=== PATIENT | male | born 1945 | race Caucasian/White ===

== ENCOUNTER 2018-08-19 15:33 | Inpatient (IN) | payer MEDICARE, MEDICAID ==
[~2018-08-19] VITALS: Ht 170.2 cm; Wt 55.8 kg
--- NOTE | 2018-08-19 15:35 | NUR ---
Dr. Kevin at bedside to examine patient.
--- NOTE | 2018-08-19 16:27 | NUR ---
call for report as informed rn. Tompkins on lunch break. to call back in 30 min.
[2018-08-19 16:40] LABS: BASOPHILS # (AUTO) 0.1 K/uL (0.0-8.0); BASOPHILS % (AUTO) 1.1 % (0.0-2.0); EOSINOPHILS # (AUTO) 0.2 K/uL (0.0-0.7); EOSINOPHILS % (AUTO) 2.7 % (0.0-7.0); HEMATOCRIT 42.1 % (36.7-47.1); LYMPHOCYTES # (AUTO) 1.4 K/uL (20.0-40.0); LYMPHOCYTES % (AUTO) 20.5 % (20.5-51.5); MEAN CORPUSCULAR HEMOGLOBIN 30.2 uug (23.8-33.4); MEAN CORPUSCULAR HGB CONC 33 g/dL (32.5-36.3); MEAN CORPUSCULAR VOLUME 90.6 fL (73.0-96.2); MONOCYTES # (AUTO) 0.5 K/uL (2.0-10.0); MONOCYTES % (AUTO) 8.1 % (0.0-11.0); NEUTROPHILS # (AUTO) 4.5 K/uL (1.8-8.9); NEUTROPHILS % (AUTO) 67.6 % (38.5-71.5); PLATELET COUNT (AUTO) 215 K/uL (152-348); RED BLOOD CELL COUNT(AUTO) 4.64 MIL/uL (4.06-5.63); WHITE BLOOD COUNT (AUTO) 6.6 K/uL (3.6-10.2)
[2018-08-19 16:43] LABS: CARBON DIOXIDE 30 mmol/L (21-32); CHLORIDE 110 mmol/L (98-107); CREATININE 1.2 mg/dL (0.6-1.3); GLUCOSE 91 mg/dL (74-106); POTASSIUM 4.3 mmol/L (3.5-5.1); UREA NITROGEN, BLOOD 29 mg/dL (7-18)
[2018-08-19 16:48] LABS: ETHANOL < 3 MG/DL (0-0)
[2018-08-19 16:55] LABS: ALANINE AMINOTRANSFERASE 41 U/L (16-63); ALKALINE PHOSPHATASE 85 U/L (50-136); ASPARTATE AMINOTRANSFERASE 16 U/L (15-37); BILIRUBIN,DIRECT 0.1 mg/dL (0.0-0.2); BILIRUBIN,TOTAL 0.4 mg/dL (0.2-1.0); TOTAL PROTEIN, SERUM 7.1 g/dL (6.4-8.2)
[2018-08-19 16:56] LABS: ACETAMINOPHEN < 2.0 ug/mL (10-30)
[2018-08-19 17:21] LABS: *BILIRUBIN,URIN NEGATIVE (NEGATIVE); *BLOOD, URINE Trace-intact (NEGATIVE); *COLOR,URINE YELLOW (YELLOW); *KETONES,URINE TRACE (NEGATIVE); *PROTEIN,URINE NEGATIVE (NEGATIVE); LEUKOCYTE ESTERASE ,URINE NEGATIVE (NEGATIVE); NITRITE, URINE NEGATIVE (NEGATIVE); UGLUCOSE NEGATIVE (NEGATIVE)
[2018-08-19 17:22] LABS: *CLARITY,URINE SLIGHTLY CLOUDY (CLEAR)
[2018-08-19 17:28] LABS: THYROID STIMULATING HORMONE 1.087 mIU/mL (0.358-3.740)
[2018-08-19 17:30] LABS: BACTERIA,URINE NONE SEEN /HPF (NONE SEEN); SQUAMOUS EPITHELIAL CELL,UR FEW /HPF (NONE SEEN); WBC,URINE 0-3 /HPF (0-3)
[2018-08-19 17:31] LABS: *AMPHETAMINE, URINE NEGATIVE (NEGATIVE); *BARBITURATE, URINE NEGATIVE (NEGATIVE); *CANNABINOID, URINE NEGATIVE (NEGATIVE); *COCCAINE, URINE NEGATIVE (NEGATIVE); *OPIATE, URINE NEGATIVE (NEGATIVE); *PHENCYCLIDINE SCREEN,URINE NEGATIVE (NEGATIVE); URINE AMORPHOUS URATE MODERATE /HPF
--- NOTE | 2018-08-19 17:37 | NUR ---
2nd call for report as informed by Audra Rn. hold transfer for now staff not ready to receive pt. Dr. Henley, Founder And President, and charge notified.
--- NOTE | 2018-08-19 18:28 | NUR ---
Patient ate soft dinner tray with good appetite. transit police officer Joselito Quintanilla is at bedside. 1;1 sitter observation mainained. U nurse Audra accepted nursing hands off report.
[2018-08-19 20:01] VITALS: BP 169/79
[2018-08-19] MEDS ORDERED: MAGNESIUM HYDROXIDE 30 ML LIQUID UDC PO PRN (20:45)
[2018-08-19] MEDS ORDERED: MAG HYDROX/AL HYDROX/SIMETH 30 ML LIQUID UDC PO PRN (20:45)
[2018-08-19] MEDS ORDERED: ACETAMINOPHEN 325 MG TABLET PO PRN (20:45)
--- NOTE | 2018-08-20 05:27 | NUR ---
Received pt to care, pt sitting in the hallway in a wheelchair, pt brought in by police for "walking into traffic at the [facility] airport, pt clothes was soiled, pt stated that he was hungry, pt told officers that he was looking for his cat but officers observed no cat around". Pt was offered a sandwich and juice, pt ate 100%. Pt signed all admin paperwork, pt A&O x2, pt frail, unkempt, unstable gait, not in contact with any family. Pt states that he has 2 children but he does not have their phone number but he is able to provide their full name. Pt states that he is aware that he walked into traffic at [facility] and shrugs his shoulders signifying to sql report writer that he did not care. Pt states that he has a cat named Kami who he was looking for at the airport. When sql report writer inquired about incongruent statement that pt made during the interview that his cat , pt giggled and said that Kami "came back from the " Pt is disoriented and hallucinating. During physical assessment pt showed sql report writer apparent scratches on his back that he states that he received from his cat Kami. Pt skin looks dry as if he scratches it. It is minor. Pt states that he has fallen twice in the last month but denies that he has trouble walking stating that "the ground was uneven. Pt forgets his limitations and is constantly trying to get up out of his wheelchair or abbey-chair without asking for assistance. Pt did not want to sleep in his room because the bed alarm was on. Pt also wanted to sleep with the light on and his roommate resisted. Pt asked to sleep in the abbey-chair. Pt denies having any trouble sleeping. Pt refused PRN sleep med and anxiety med. Pt complains about cataracts and stated that it contributes to him falling. No other medical history or medication information as the patient is homeless. Pt req info about advance directive and order placed for social group worker. Pt refuses pneumo and flu vaccine stating that he does not need or want it. Pt cooperative, I will continue to monitor.
[2018-08-20 07:30] VITALS: BP 154/80
[2018-08-20] MEDS: LORAZEPAM 0.5 MG TABLET PO PRN (14:09)
--- NOTE | 2018-08-20 14:09 | NUR ---
Initial Discharge Instructions: Patient is currently homeless and stated that "[facility] is my home." Patient reports that he does not want to remain homeless upon discharge. SW educated patient about placement options of SNF vs B&C. Patient was agreeable to either option stating, "I want to do what the doctor recommends." SW will continue to collaborate with pt and MD regarding most appropriate discharge plans for this patient. SW will form a safe and proper discharge.
--- NOTE | 2018-08-20 15:05 | NUR ---
NURSING NOTES: MESSAGE LEFT TO DR CROSS ABOUT NEURO CONSULT
--- NOTE | 2018-08-20 15:44 | NUR ---
NURSING NOTES: SEEN BY ELECTROTYPER APPRENTICE FOR CARE.
[2018-08-20 16:49] VITALS: BP 154/76
[2018-08-21 07:30] VITALS: BP 180/97
[2018-08-21] MEDS ORDERED: LORAZEPAM 2 MG/1 ML VIAL IM ONE (17:00)
[2018-08-21] MEDS ORDERED: OLANZAPINE 10 MG VIAL IM ONE (17:00)
[2018-08-21] MEDS: QUETIAPINE FUMARATE 25 MG TABLET PO SCH (17:00)
[2018-08-21 17:12] VITALS: BP 148/77
--- NOTE | 2018-08-21 18:20 | NUR ---
1600 PATIENT AGITATED AND CONFUSED WANTING TO GO HOME, REDIRECTED PATIENT AND OFFERED PRN ATIVAN 0.5MG PO BUT PATIENT REFUSED. 1640 OFFERED TO PATIENT ROUTINE SEROQUEL 25 MG TABLET DUE AT 1700, PSTIENT WAS VERY ANGRY AND HIT THE HAND OF THE STAFF SO HARD. PATIENT FOLLOW THE STAFF TO COMPUTER ROOM TRYING TO ATTACK STAFF. [address] MONTALVO REGARDING PATIENT BEHAVIOR OUT OF CONTROL WITH EMERGENCY DRUG ORDER -CARRIED OUT.
[2018-08-21] MEDS: LORAZEPAM 0.5 MG TABLET PO PRN ×2 (19:57→20:32)
--- NOTE | 2018-08-21 20:30 | NUR ---
RECEIVED PATIENT IN RECLINING CHAIR, VERBALLY RESPONSIVE BUT NOT CLEAR, NO S/S OF PAIN NOR DISCOMFORT, PATIENT HAS LITTLE EPISODES OF RESTLESS, AGITATION, STAFF ABLE TO REDIRECT PATIENT, ASSISTED WITH TOILETING, KEPT CLEAN AND DRY. ON 1;1 SITTER FOR SAFETY, ASSISTED BACK TO BED, CONT TO MONITOR.
[2018-08-21] MEDS: TEMAZEPAM 7.5 MG CAPSULE PO PRN (21:36)
[2018-08-21 22:00] VITALS: BP 142/72
--- NOTE | 2018-08-22 06:34 | NUR ---
PATIENT AWAKE WITH CONFUSION NOTED, REORIENT PATIENT, NO S/S OF PAIN NOR DISCOMFORT, CONTINENT OF BLADDER, ASSISTED WITH TOILETING, CONT 1;1 SITTER FOR SAFETY, WITH EPISODES OF RESTLESSNESS BUT ABLE TO REDIRECT PATIENT, PATIENT SLEPT FOR 7 HOURS. CONT TO MONITOR.
[2018-08-22 08:00] VITALS: BP 109/53
[2018-08-22] MEDS: QUETIAPINE FUMARATE 25 MG TABLET PO SCH ×2 (08:00→17:47)
[2018-08-22 12:00] VITALS: BP 118/75
[2018-08-22 15:26] VITALS: BP 113/69
--- NOTE | 2018-08-22 16:21 | NUR ---
Firearms Report: Fire Operations Forester completed and submitted [employer] Firearms Report for 5250 GD certification.
--- NOTE | 2018-08-22 16:58 | NUR ---
transfer the pt to u via wheel chair in stable condition
--- NOTE | 2018-08-22 17:04 | NUR ---
ROD MANRIQUE IN CT SCAN. STATES THEY ARE STILL BUSY, BUT [facility] IS NEXT ON THE LIST FOR CT SCAN.
[2018-08-22] MEDS: DONEPEZIL 5 MG TABLET PO SCH (21:09)
[2018-08-22] MEDS: TEMAZEPAM 7.5 MG CAPSULE PO PRN (21:11)
[2018-08-22 21:59] VITALS: BP 109/61
[2018-08-23 07:30] VITALS: BP 200/97
[2018-08-23] MEDS: QUETIAPINE FUMARATE 25 MG TABLET PO SCH ×2 (09:03→16:44)
[2018-08-23 15:54] VITALS: BP 133/73
[2018-08-23 20:20] VITALS: BP 115/65
[2018-08-23] MEDS: DONEPEZIL 5 MG TABLET PO SCH (20:37)
--- NOTE | 2018-08-23 21:09 | NUR ---
Received pt sleeping in bed, aroused easily to verbal stimuli. No acute distress noted. Compliant with med. VSS. Safety measures maintained. Will continue to monitor.
[2018-08-24 07:30] VITALS: BP 157/76
[2018-08-24] MEDS: QUETIAPINE FUMARATE 25 MG TABLET PO SCH ×2 (09:11→16:38)
--- NOTE | 2018-08-24 13:28 | NUR ---
GPS: Nursing Notes: Thought Disorder: Patient is awake and responding to her name, forgetful, gets easily anxious when redirected, believes that his medication is not working, internally preoccupied, believes that his cat is talking to him, "My cat tells me only good things.. It is not a bad cat..", depressed mood and anxious affect, unable to formulate a viable plan for self care, assisted with ADL's, continue with treatment plan.
[2018-08-24 15:37] VITALS: BP 148/67
[2018-08-24] MEDS: DONEPEZIL 5 MG TABLET PO SCH (20:25)
[2018-08-24 21:38] VITALS: BP 126/57
--- NOTE | 2018-08-24 22:23 | NUR ---
Received pt to care, pt asleep in bed, pt woke up refusing a snack, refusing his medication, pt states that "he was tested for alzheimer", "what do you want me to go to sleep", pt is labile, suspicious, pt was noted walking in the hallways saying " I don't want to " to himself and to staff and to other patients, pt complains of being dizzy and was redirected back to bed many times to lay down in order to prevent a fall. Pt offered water and saltine crackers but pt refused. I will continue to monitor.
[2018-08-25 08:00] VITALS: BP 170/86
[2018-08-25] MEDS: LORAZEPAM 0.5 MG TABLET PO PRN (08:30)
[2018-08-25] MEDS: QUETIAPINE FUMARATE 25 MG TABLET PO SCH ×2 (09:00→16:03)
[2018-08-25 09:47] VITALS: BP 132/84
[2018-08-25 15:10] VITALS: BP 173/82
[2018-08-25 20:49] VITALS: BP 158/75
[2018-08-25] MEDS: DONEPEZIL 5 MG TABLET PO SCH (20:56)
[2018-08-26 07:30] VITALS: BP 157/65
[2018-08-26] MEDS: QUETIAPINE FUMARATE 25 MG TABLET PO SCH (08:13)
[2018-08-26 16:46] VITALS: BP 138/66
[2018-08-26 20:00] VITALS: BP 139/71
[2018-08-26] MEDS: DONEPEZIL 5 MG TABLET PO SCH (20:36)
[2018-08-26] MEDS ORDERED: OLANZAPINE 2.5 MG TABLET PO SCH (21:00)
[2018-08-27 08:30] VITALS: BP 153/80
--- NOTE | 2018-08-27 12:02 | NUR ---
Discharge Planning Note: Insecticide Maker met with patient at bedside to discuss discharge planning. Patient reports he is still agreeable with SNF placement. Patient expressed concerns about his medications and presented forgetful and suspicious as he stated, "I haven't seen my doctor this entire time I've been here." SW attempted to redirect informing him that the doctor sees him everyday and that he had agreed to try his new medication (Zyprexa 2.5 PO HS). Patient stated, "I don't want that medication...I want Haldol." and SW provided reassurance informing him that the message will be relayed to his RN and the Psychiatrist. SW also encouraged pt to discuss concerns with his Psychiatrist. ROD collaborated with CANELO Tompkins to make aware of patient's wishes. SW will continue to provide support and reassurance to the patient.
[2018-08-27] MEDS: HALOPERIDOL 2 MG TABLET PO SCH (17:20)
[2018-08-27 17:23] VITALS: BP 135/66
[2018-08-27] MEDS: DONEPEZIL 5 MG TABLET PO SCH (20:13)
[2018-08-27 20:40] VITALS: BP 124/64
[2018-08-28 07:30] VITALS: BP 142/75
[2018-08-28] MEDS: HALOPERIDOL 2 MG TABLET PO SCH ×2 (08:33→16:53)
[2018-08-28 15:05] VITALS: BP 118/70
--- NOTE | 2018-08-28 15:41 | NUR ---
Activity Group Note: Patients were asked to draw a picture of Fall and to join in discussion of what Fall means to them or any memories they may have of the Fall season. Subjective: "I don't want to draw" [Patient made this statement when asked if she would like to draw a picture] Objective: Patient appeared to be enjoying himself and company of peers. Though he did not want to participate in the drawing portion of the activity, he did participate in discussion. Assessment: Patient needs encouragement and support in attempting new activities. Plan: Encourage group attendance as scheduled. food and drink factory workers will continue to provide encouragement and support in helping patient engage in new activities.
[2018-08-28] MEDS: DONEPEZIL 5 MG TABLET PO SCH (20:06)
[2018-08-28 20:25] VITALS: BP 147/72
[2018-08-29 07:30] VITALS: BP 161/64
[2018-08-29] MEDS: HALOPERIDOL 2 MG TABLET PO SCH ×2 (08:23→17:20)
[2018-08-29 15:49] VITALS: BP 175/82
[2018-08-29] MEDS: DONEPEZIL 5 MG TABLET PO SCH (20:04)
--- NOTE | 2018-08-30 06:50 | NUR ---
GPS: Pt.refused scheduled lab draw this morning despite explanation of importance. Stated "I'm leaving today,i don't want to get poked again". Endorsed to charge nurse.
[2018-08-30] MEDS: HALOPERIDOL 2 MG TABLET PO SCH (08:35)
--- NOTE | 2018-08-30 08:43 | NUR ---
Discharge Note: Patient will be discharged to [facility] [[address] [place] [address]; [phone]] via ambulance. Please arrange an ambulance for this patient. Spoke with CJ at the facility who states they are ready to accept the patient today. Patient is aware and agreeable with discharge plans. Patient presents pleasant and cooperative and denies SI/HI. Patient will follow-up at the facility with Dr. Vaca (Cad Draftsman) and Dr. Veronica (Psychiatrist). Patient was provided with outpatient mental health resources to [facility] , [facility] Noble , and the National Suicide Prevention Lifeline .
--- NOTE | 2018-08-30 10:58 | NUR ---
Gps/Service Control Operator- Called [facility], report given to Haris Crarera(admitting Nurse) . Patient was well informed of his dc. plan. All belongings returned back to patient including the one placed in the safe. Ambulance was arranged to pepper picker patient at 1100. Patient in no distress, no complaints noted.
--- NOTE | 2018-08-30 11:35 | NUR ---
Gps/Marine Diesel Mechanic- Rylan Rainey DNP was called informed of elevated B/P when ambulance EMT checked. B/P 181/96, per patient, he used to take cozaar 100 mg po daily. Orders received to give hydralazine 50 mg po now dose, and cozaar 100 mg. po daily. Patient was informed, was anxious, reassured. Will rechecked b/p after med. administration.
[2018-08-30] MEDS ORDERED: hydrALAZINE HCL 50 MG TABLET PO ONE (11:45)
--- NOTE | 2018-08-30 12:52 | NUR ---
Gps/Tube Builder- Called [facility] spoked to Sole Tier Debi, informed b/p 167/88 on his right arm, dont want to take the patient unless b/p goes down to < 150 systolic. Ambulance informed. Cacelled transportation at this time, will continue to recheck vital signs. Patient requesting manual blood pressure check, borrowed manual b/p from ER b/p remains up at 180/90 , patient thinks staff taking his b/p wrong.
[2018-08-30] MEDS ORDERED: LOSARTAN POTASSIUM 50 MG TABLET PO SCH (13:00)
[2018-08-30 16:00] VITALS: BP 141/76
--- NOTE | 2018-08-30 16:13 | NUR ---
Group Activity Note: GOAL: Patient will actively participate in the group activity of the day or relax in the activity room with fellow patients. INTERVENTION: Water Pumper invited patient to participant in the arts and craft group activity held from 2 -2:45 pm in the activity room. RESPONSE: Patient expressed interest in participating in arts and crafts. Patient participated in the activity for about 30 minutes by doing some freehand drawing. Patient had minimal interaction with peers and was very cooperative during the activity. PLAN: administrative project coordinator will invite patient to attend the next group activity that is held.
[2018-08-30] MEDS: LORAZEPAM 0.5 MG TABLET PO PRN (16:28)
[2018-08-30] MEDS ORDERED: CLONIDINE HCL 0.1 MG TABLET PO ONE (17:00)
[2018-08-30 17:02] VITALS: BP 176/76
--- NOTE | 2018-08-30 17:12 | NUR ---
Gps/Extruder Operator Vertical- Patient anxious about his discharged b/p rechecked 150/80 HR hr 77 right arm.
--- NOTE | 2018-08-30 17:25 | NUR ---
Gps/Shafting Cleaner- Called [facility] , spoked to Nursing Servicer [employer] Mach[employer] Debi, informed patient's latest b/p 150/80 and patient was given clonidine 0.1 mg po. Patient discharged in good spirit, no complaints noted, all belongings given back to patient.Discharged via ambulance.
== END 2018-08-30 17:20 | DRG 885 ==
LOC: ER 15:33 → GPS 18:27 → GPSOV 08-21 20:39 → GPS 08-22 17:00
PROVIDERS: ADMIT Psychiatry & Neurology Psychiatry; ATTEND Internal Medicine
PROC: 0HBRXZZ Excision of Toe Nail, External Approach (ICD-10-PCS; principal; 2018-08-20)
DX: F29 Unspecified psychosis not due to a substance or known physiological condition (principal); N17.0 Acute kidney failure with tubular necrosis; E87.0 Hyperosmolality and hypernatremia; F03.91 Unspecified dementia, unspecified severity, with behavioral disturbance; F02.81 Dementia in other diseases classified elsewhere, unspecified severity, with behavioral disturbance; E44.0 Moderate protein-calorie malnutrition; Z68.1 Body mass index [BMI] 19.9 or less, adult; Z59.0 Homelessness; E86.0 Dehydration; L60.3 Nail dystrophy; Z91.83 Wandering in diseases classified elsewhere; Z91.14 Patient's other noncompliance with medication regimen; G31.9 Degenerative disease of nervous system, unspecified; I10 Essential (primary) hypertension; I67.2 Cerebral atherosclerosis; J45.909 Unspecified asthma, uncomplicated
CPT/HCPCS: 36415; 70450; 71045; 80307; 84443; 85025; 86592; 93005; A4663; G0480; G0480-TC; J2060; J2358